=== PATIENT | male | born 1935 | race Caucasian/White ===

== ENCOUNTER 2019-07-29 11:29 | Day surgery (SDC) | payer MEDICARE ==
[2019-07-27 12:10] VITALS: BP 179/71
[~2019-07-29] VITALS: Ht 180.3 cm; Wt 83.3 kg
[2019-07-29] VITALS (14 sets, daily range): BP systolic 102–207; BP diastolic 56–106
[2019-07-29] MEDS ORDERED: ACET-1008 PO (12:11)
[2019-07-29] MEDS ORDERED: ATOR40TA PO (12:11)
[2019-07-29] MEDS ORDERED: CALC1TAB2 (12:11)
[2019-07-29] MEDS ORDERED: MULT-1085 PO (12:11)
[2019-07-29] MEDS ORDERED: OMEG1CAP46 PO (12:11)
[2019-07-29] MEDS ORDERED: ASPI-611 PO (12:11)
[2019-07-29] MEDS ORDERED: LABE100T5 PO (12:11)
[2019-07-29 12:44] LABS: BASOPHILS % (AUTO) 0.6 % (0-1); EOSINOPHILS # (AUTO) 0.4 X10'3 (0-0.9); EOSINOPHILS % (AUTO) 6.9 % (0-6); HEMATOCRIT 41.9 % (42.0-52.0); HEMOGLOBIN 14.4 g/dl (14.0-17.9); LYMPHOCYTES # (AUTO) 1.1 X10'3 (1.1-4.8); LYMPHOCYTES % (AUTO) 18.3 % (21-51); MEAN CORPUSCULAR HEMOGLOBIN 33.9 PG (27.0-31.0); MEAN CORPUSCULAR HGB CONC 34.4 g/dL (33.0-36.5); MEAN CORPUSCULAR VOLUME 98.6 FL (78-98); MEAN PLATELET VOLUME 7.4 FL (7.4-10.4); MONOCYTES # (AUTO) 0.9 X10'3 (0-0.9); MONOCYTES % (AUTO) 14.5 % (2-12); NEUTROPHILS # (AUTO) 3.7 X10'3 (1.8-7.7); NEUTROPHILS % (AUTO) 59.7 % (42-75); PLATELET COUNT 181 X10'3 (140-440); RED BLOOD COUNT 4.25 X10'6 (4.70-6.10); RED CELL DISTRIBUTION WIDTH 13.4 % (11.5-14.5); WHITE BLOOD COUNT 6.3 X10'3 (4.5-11.0)
[2019-07-29] MEDS ORDERED: pneumococcal 23-VAL P-sac vacc 25 mcg/0.5ml vial IMVAC ONE (12:55)
[2019-07-29 12:57] LABS: PARTIAL THROMBOPLASTIN TIME 28 SECONDS (22-32)
[2019-07-29] MEDS ORDERED: LIDOcaine 1%/PF 5ML 10 MG/ML VIAL SQ ONE (13:45)
[2019-07-29] MEDS ORDERED: fentaNYL/PF 50MCG/1 ML 2ML syringe IV PRN (13:45)
[2019-07-29] MEDS ORDERED: midazolam 2 mg/2 ml injection IV PRN (13:45)
[2019-07-29] MEDS ORDERED: fentaNYL/PF 50MCG/1 ML 2ML syringe ONE (13:50)
[2019-07-29] MEDS ORDERED: midazolam 2 mg/2 ml injection ONE (13:50)
[2019-07-29] MEDS ORDERED: hydrALAZINE 20mg/ml inj. IV ONE (14:16)
[2019-07-29] MEDS ORDERED: gelatin sponge, absorbable (Gelfoam 12-7MM) sponge TP ONE (14:21)
[2019-07-29] MEDS ORDERED: HYDROcodone/acetaminophen 5mg/325mg tablet PO PRN ×2 (14:50)
== END 2019-07-29 17:55 | disposition home or self-care (01) ==
LOC: SSTAY O 11:29
PROVIDERS: ATTEND Radiology Vascular & Interventional Radiology
DX: K76.89 Other specified diseases of liver (principal); C22.7 Other specified carcinomas of liver; Z79.82 Long term (current) use of aspirin; Z79.899 Other long term (current) drug therapy
CPT/HCPCS: 36415; 47000; 76942; 85025; 85610; 85730; 99152; 99153; J0360; J2250; J3010